=== PATIENT | female | born 1955 | race African-American/Black ===

== ENCOUNTER 2025-05-19 16:57 | Inpatient (IN) | payer MEDICARE, MEDICAID ==
[~2025-05-19] VITALS: Ht 170.2 cm; Wt 96.6 kg
[2025-05-19] VITALS (23 sets, daily range): BP systolic 127–175; BP diastolic 50–135; PULSE 59–66; RESP 10–24; TEMP 36.8–37.252; O2SAT 95–100
[2025-05-19] MEDS: ALBUTEROL (0.083%) 2.5MG/3ML NEB HHN SCH (17:30)
[2025-05-19] MEDS: IPRATROPIUM BROMIDE (0.02%) 0.5MG/2.5ML NEB HHN SCH (17:31)
[2025-05-19] MEDS: NALOXONE HCL 1MG/ML 2ML VIAL IV ONE (17:32)
[2025-05-19] MEDS: METHYLPREDNISOLONE SOD SUCC 125MG/2ML (ACT-O-VIAL) IV ONE (17:39)
[2025-05-19] MEDS: SODIUM CHLORIDE 0.9% 1,000 ML IV ONE (17:40)
[2025-05-19] MEDS: MAGNESIUM 2 G PREMIX 50 ML IV ONE (17:46)
[2025-05-19 18:09] LABS: BG BASE EXCESS 2.3 mmol/L (-2.0-3.0); BG CARBOXYHEMOGLOBIN 1.1 % (0.5-1.5); BG DEOXYHEMOGLOBIN 0.0 % (0.0-5.0); BG FRACTION INSPIRED OXYGEN 100; BG HCO3 ACT 30.5 mmol/L (21.0-28.0); BG METHEMOGLOBIN 0.3 % (0.5-1.5); BG OXYGEN SATURATION 100.0 % (94.0-98.0); BG OXYHEMOGLOBIN 98.6 % (94.0-98.0); BG PCO2 64.7 mmHg (32.0-45.0); BG PH 7.291 (7.350-7.450); BG PO2 440.8 mmHg (83.0-108.0); BG SAMPLE SITE RIGHT RADIAL; BG TOTAL HEMOGLOBIN 13.2 g/dL (12.0-16.0); BG VENT MODE MASK - NRB
[2025-05-19] MEDS ORDERED: FENTANYL 2500MCG/250ML PMX 250 ML IV SCH ×2 (18:15→18:45)
[2025-05-19 18:25] LABS: BASOPHILS % 0.9 % (0.0-2.0); EOSINOPHILS % 6.9 % (0.0-5.0); HEMATOCRIT. 39.7 % (36.0-48.0); HEMOGLOBIN. 12.5 g/dL (12.0-16.0); LYMPHOCYTES % 24.8 % (20.0-50.0); MEAN PLATELET VOLUME 7.5 fl (7.4-10.4); MONOCYTES % 8.9 % (2.0-8.0); NEUTROPHILS % 58.5 % (40.0-76.0); PLATELET 295 x1000/uL (130-400); RED BLOOD CELL COUNT 4.41 mill/uL (4.2-5.4); RED CELL DISTRIBUTION WIDTH 15.0 % (11.6-14.6)
[2025-05-19] MEDS: NOREPINEPHRINE 8MG/250ML PMX 250 ML IV SCH (18:32)
[2025-05-19 18:39] LABS: INR 1.0
[2025-05-19 18:40] LABS: CREATININE 0.8 mg/dL (0.6-1.0); UREA NITROGEN BLOOD 13 mg/dL (9-23)
[2025-05-19 18:42] LABS: TROPONIN I HIGH SENSITIVITY 32 ng/L (3.0-34)
[2025-05-19] MEDS: HALOPERIDOL LACTATE 5MG/ML VIAL IM ONE (19:08)
[2025-05-19] MEDS: ETOMIDATE 2MG/ML 10ML VIAL IV ONE (19:10)
[2025-05-19] MEDS: ROCURONIUM BROMIDE 10MG/ML VIAL 5ML IV ONE (19:10)
[2025-05-19] MEDS: FENTANYL 2500MCG/250ML PMX 250 ML IV PRN (19:13)
[2025-05-19] MEDS ORDERED: MORPHINE SULFATE 2 MG/ML INJ (NOT FOR IM USE) IV PRN (19:45)
[2025-05-19] MEDS ORDERED: ONDANSETRON HCL 4MG/2ML INJ IV PRN (19:45)
[2025-05-19] MEDS ORDERED: MAGNESIUM/ALUMINUM HYDROXIDE/SIMETHICONE 30ML UDC PO PRN (19:45)
[2025-05-19] MEDS ORDERED: ACETAMINOPHEN 325MG TABLET PO PRN (19:45)
[2025-05-19] MEDS ORDERED: ZOLPIDEM TARTRATE 5MG TABLET PO PRN (19:45)
[2025-05-19] MEDS ORDERED: HYDROCODONE/ACETAMINOPHEN 5/325MG TABLET PO PRN (19:45)
[2025-05-19] MEDS ORDERED: NALOXONE HCL 0.4MG/ML VIAL IV PRN (20:00)
[2025-05-19 20:23] LABS: TROPONIN I HIGH SENSITIVITY 27 ng/L (3.0-34)
[2025-05-19] MEDS: CEFEPIME 2GM PREMIX 100ML IV SCH (21:00)
[2025-05-19] MEDS: ENOXAPARIN 30MG/0.3ML SYR SUBCUT SCH (21:36)
[2025-05-19] MEDS: SODIUM CHLORIDE 0.9% 1,000 ML IV SCH (21:36)
[2025-05-19] MEDS ORDERED: PIPERACILLIN/TAZO 3.375G/50ML 50 ML IV SCH (22:00)
[2025-05-19] MEDS: AZITHROMYCIN 500MG/250ML 250 ML IV SCH (22:22)
[2025-05-19] MEDS: IPRATROPIUM/ALBUTEROL 0.5-3(2.5)MG/3ML NEB HHN SCH (22:57)
[2025-05-20] VITALS (101 sets, daily range): BP systolic 80–173; BP diastolic 45–119; PULSE 58–68; RESP 11–22; TEMP 36.9–37.2; O2SAT 95–100
[2025-05-20 06:13] LABS: TROPONIN I HIGH SENSITIVITY 19 ng/L (3.0-34)
[2025-05-20 06:43] LABS: CREATININE 0.6 mg/dL (0.6-1.0); UREA NITROGEN BLOOD 11 mg/dL (9-23)
[2025-05-20 09:13] LABS: CLARITY URINE CLEAR (CLEAR); COLOR URINE YELLOW (YELLOW); GLUCOSE URINE 3+ (NEGATIVE); KETONES URINE 1+ (NEGATIVE); LEUKOCYTE ESTERASE URINE NEGATIVE (NEGATIVE); NITRITE URINE NEGATIVE (NEGATIVE); OCCULT BLOOD URINE 2+ (NEGATIVE); PH URINE 5.0 (4.5-8.0); PROTEIN URINE TRACE (NEGATIVE); SPECIFIC GRAVITY URINE 1.032 (1.005-1.030); UROBILINOGEN URINE 0.2 E.U./dL (0.2-1.0)
[2025-05-20 09:28] LABS: RBC URINE 15-25 /hpf (0-2); SQUAMOUS EPITHELIAL CELL URINE FEW /lpf (RARE/1+)
[2025-05-20 09:32] LABS: BACTERIA URINE TRACE
[2025-05-20 09:44] LABS: *AMPHETAMINES SCREEN URINE NEGATIVE (NEGATIVE); *BARBITURATES SCREEN URINE NEGATIVE (NEGATIVE); *BENZODIAZEPINES SCREEN URINE NEGATIVE (NEGATIVE); *COCAINE SCREEN URINE NEGATIVE (NEGATIVE)
[2025-05-20 09:45] LABS: CANNABINOID URINE SCREEN NEGATIVE (NEGATIVE); ECSTASY MDMA SCREEN URINE NEGATIVE (NEGATIVE); METHADONE URINE SCREEN NEGATIVE (NEGATIVE); OPIATES URINE SCREEN NEGATIVE (NEGATIVE); PHENCYCLIDINE URINE SCREEN NEGATIVE (NEGATIVE)
[2025-05-20] MEDS: PANTOPRAZOLE SODIUM 40 MG/VIAL IV SCH (10:20)
[2025-05-20 10:29] LABS: BASOPHILS % 0.4 % (0.0-2.0); EOSINOPHILS % 0.0 % (0.0-5.0); HEMATOCRIT. 42.6 % (36.0-48.0); HEMOGLOBIN. 13.0 g/dL (12.0-16.0); LYMPHOCYTES % 12.0 % (20.0-50.0); MEAN PLATELET VOLUME 7.3 fl (7.4-10.4); MONOCYTES % 8.5 % (2.0-8.0); NEUTROPHILS % 79.1 % (40.0-76.0); PLATELET 281 x1000/uL (130-400); RED BLOOD CELL COUNT 4.64 mill/uL (4.2-5.4); RED CELL DISTRIBUTION WIDTH 15.0 % (11.6-14.6)
[2025-05-20] MEDS: METHYLPREDNISOLONE SOD SUCC 40MG/ML (ACT-O-VIAL) IV SCH (10:30)
[2025-05-20] MEDS ORDERED: METHIMAZOLE 5MG TABLET PO SCH (10:30)
[2025-05-20 10:50] LABS: TROPONIN I HIGH SENSITIVITY 29 ng/L (3.0-34)
[2025-05-20 10:56] LABS: BG BASE EXCESS -0.6 mmol/L (-2.0-3.0); BG CARBOXYHEMOGLOBIN 0.8 % (0.5-1.5); BG DEOXYHEMOGLOBIN 2.2 % (0.0-5.0); BG FRACTION INSPIRED OXYGEN 40; BG HCO3 ACT 26.3 mmol/L (21.0-28.0); BG METHEMOGLOBIN 0.3 % (0.5-1.5); BG OXYGEN SATURATION 97.8 % (94.0-98.0); BG OXYHEMOGLOBIN 96.7 % (94.0-98.0); BG PCO2 52.6 mmHg (32.0-45.0); BG PEEP (cmH2O) 5.0 cmH2O; BG PH 7.317 (7.350-7.450); BG PO2 97.9 mmHg (83.0-108.0); BG SAMPLE SITE RIGHT RADIAL; BG TIDAL VOLUME(mL) 400.0 mL; BG TOTAL HEMOGLOBIN 13.6 g/dL (12.0-16.0); BG VENT MODE VENT - AC; BG VENT RATE 12.0 set
[2025-05-20] MEDS: DEXT 5%/0.45% NACL 1000ML 1,000 ML IV SCH (12:58)
[2025-05-20] MEDS ORDERED: DEXTROSE 50% WATER 50ML SYRINGE IV PRN (17:45)
[2025-05-20 19:47] LABS: T4 FREE 1.0 ng/dL (0.89-1.76)
[2025-05-20 19:54] LABS: VITAMIN B12 SERUM 1101 pg/mL (211-911)
[2025-05-20] MEDS: INSULIN LISPRO 100 UNITS/ML SUBCUT SCH (20:56)
[2025-05-20] MEDS: BLOOD SUGAR DIAGNOSTIC STRIP TEST SCH (20:56)
[2025-05-20] MEDS: AZITHROMYCIN 500MG/250ML 250 ML IV SCH (21:14)
[2025-05-21] VITALS (109 sets, daily range): BP systolic 119–189; BP diastolic 57–149; PULSE 59–69; RESP 10–23; TEMP 36.8–37; O2SAT 82–100
[2025-05-21 06:02] LABS: BASOPHILS % 0.3 % (0.0-2.0); EOSINOPHILS % 0.6 % (0.0-5.0); HEMATOCRIT. 38.5 % (36.0-48.0); HEMOGLOBIN. 12.3 g/dL (12.0-16.0); LYMPHOCYTES % 11.1 % (20.0-50.0); MEAN PLATELET VOLUME 7.8 fl (7.4-10.4); MONOCYTES % 9.7 % (2.0-8.0); NEUTROPHILS % 78.3 % (40.0-76.0); PLATELET 296 x1000/uL (130-400); RED BLOOD CELL COUNT 4.26 mill/uL (4.2-5.4); RED CELL DISTRIBUTION WIDTH 15.0 % (11.6-14.6)
[2025-05-21 06:09] LABS: CREATININE 0.8 mg/dL (0.6-1.0); UREA NITROGEN BLOOD 17 mg/dL (9-23)
[2025-05-21] MEDS: CLONIDINE 0.1MG TABLET PO PRN (06:42)
[2025-05-21] MEDS ORDERED: LIDOCAINE HCL 1% 10 MG/ML 10ML VIAL ONE (07:25)
[2025-05-21] MEDS: LOSARTAN 25 MG TABLET NG SCH (09:19)
[2025-05-21 10:40] LABS: BG BASE EXCESS 1.8 mmol/L (-2.0-3.0); BG CARBOXYHEMOGLOBIN 1.3 % (0.5-1.5); BG DEOXYHEMOGLOBIN 2.1 % (0.0-5.0); BG FRACTION INSPIRED OXYGEN 40; BG HCO3 ACT 27.9 mmol/L (21.0-28.0); BG METHEMOGLOBIN 0.1 % (0.5-1.5); BG OXYGEN SATURATION 97.9 % (94.0-98.0); BG OXYHEMOGLOBIN 96.5 % (94.0-98.0); BG PCO2 49.3 mmHg (32.0-45.0); BG PEEP (cmH2O) 5.0 cmH2O; BG PH 7.370 (7.350-7.450); BG PO2 98.7 mmHg (83.0-108.0); BG SAMPLE SITE RIGHT RADIAL; BG TIDAL VOLUME(mL) 400.0 mL; BG TOTAL HEMOGLOBIN 13.4 g/dL (12.0-16.0); BG VENT MODE VENT - AC; BG VENT RATE 12.0 set
[2025-05-21] MEDS: AMLODIPINE 5MG TABLET NG SCH (11:21)
[2025-05-21] MEDS: METHIMAZOLE 5MG TABLET PEG SCH (14:34)
[2025-05-21] MEDS ORDERED: HYDRALAZINE 20MG/ML VIAL IV PRN (15:00)
[2025-05-21] MEDS: DOXYCYCLINE 100MG/100ML 100 ML IV SCH (20:47)
[2025-05-22] VITALS (51 sets, daily range): BP systolic 121–173; BP diastolic 50–140; PULSE 59–90; RESP 10–23; TEMP 36.2–36.9; O2SAT 95–100
[2025-05-22 00:02] LABS: BG BASE EXCESS 0.8 mmol/L (-2.0-3.0); BG CARBOXYHEMOGLOBIN 0.7 % (0.5-1.5); BG DEOXYHEMOGLOBIN 4.1 % (0.0-5.0); BG FLOW(L/min) 5.00 L/min; BG FRACTION INSPIRED OXYGEN 40; BG HCO3 ACT 26.3 mmol/L (21.0-28.0); BG METHEMOGLOBIN 0.3 % (0.5-1.5); BG OXYGEN SATURATION 95.9 % (94.0-98.0); BG OXYHEMOGLOBIN 94.9 % (94.0-98.0); BG PCO2 45.5 mmHg (32.0-45.0); BG PH 7.380 (7.350-7.450); BG PO2 78.3 mmHg (83.0-108.0); BG SAMPLE SITE LEFT RADIAL; BG TOTAL HEMOGLOBIN 13.5 g/dL (12.0-16.0); BG VENT MODE NASAL CANNULA
[2025-05-22] MEDS: IPRATROPIUM/ALBUTEROL 0.5-3(2.5)MG/3ML NEB HHN SCH (00:43)
[2025-05-22 10:38] LABS: BG BASE EXCESS 4.2 mmol/L (-2.0-3.0); BG CARBOXYHEMOGLOBIN 0.9 % (0.5-1.5); BG DEOXYHEMOGLOBIN 7.8 % (0.0-5.0); BG FLOW(L/min) 2.00 L/min; BG FRACTION INSPIRED OXYGEN 28; BG HCO3 ACT 28.0 mmol/L (21.0-28.0); BG METHEMOGLOBIN 0.1 % (0.5-1.5); BG OXYGEN SATURATION 92.1 % (94.0-98.0); BG OXYHEMOGLOBIN 91.2 % (94.0-98.0); BG PCO2 39.3 mmHg (32.0-45.0); BG PH 7.471 (7.350-7.450); BG PO2 58.0 mmHg (83.0-108.0); BG SAMPLE SITE RIGHT RADIAL; BG TOTAL HEMOGLOBIN 14.5 g/dL (12.0-16.0); BG VENT MODE NASAL CANNULA
[2025-05-22 20:56] LABS: BASOPHILS % 0.5 % (0.0-2.0); EOSINOPHILS % 0.0 % (0.0-5.0); HEMATOCRIT. 40.8 % (36.0-48.0); HEMOGLOBIN. 13.1 g/dL (12.0-16.0); LYMPHOCYTES % 7.9 % (20.0-50.0); MEAN PLATELET VOLUME 8.0 fl (7.4-10.4); MONOCYTES % 9.9 % (2.0-8.0); NEUTROPHILS % 81.7 % (40.0-76.0); PLATELET 252 x1000/uL (130-400); RED BLOOD CELL COUNT 4.62 mill/uL (4.2-5.4); RED CELL DISTRIBUTION WIDTH 14.6 % (11.6-14.6)
[2025-05-22 21:10] LABS: CREATININE 0.6 mg/dL (0.6-1.0)
[2025-05-22 21:11] LABS: UREA NITROGEN BLOOD 11 mg/dL (9-23)
[2025-05-23] VITALS (8 sets, daily range): BP systolic 125–158; BP diastolic 51–85; PULSE 59–105; RESP 15–21; TEMP 36.2–36.6; O2SAT 96–99
[2025-05-23] MEDS: AMLODIPINE 10MG TABLET NG SCH (11:43)
[2025-05-23] MEDS: METHYLPREDNISOLONE SOD SUCC 40MG/ML (ACT-O-VIAL) IV SCH (11:44)
[2025-05-23] MEDS ORDERED: IPRA3AMP9 HHN (14:38)
[2025-05-23] MEDS ORDERED: AMLO10TA80 NG (14:38)
[2025-05-23] MEDS ORDERED: LOSA25TA26 NG (14:38)
[2025-05-23] MEDS ORDERED: METH4TAB95 MT (14:38)
== END 2025-05-23 16:15 | DRG 208 ==
LOC: ER 16:57 → EDBEDREQSVC 19:15 → EDBEDREQTM 19:15 → EDBEDREQ 19:15 → EDBEDREQTM 19:34 → ENRESERV 19:44 → MICUNO 20:43 → 6WST 05-22 12:59
PROVIDERS: ADMIT Internal Medicine; ATTEND Internal Medicine
PROC: 0BH17EZ Insertion of Endotracheal Airway into Trachea, Via Natural or Artificial Opening (ICD-10-PCS; principal; 2025-05-19)
PROC: 5A1945Z Respiratory Ventilation, 24-96 Consecutive Hours (ICD-10-PCS; 2025-05-19)
DX: J18.9 Pneumonia, unspecified organism (principal); J96.02 Acute respiratory failure with hypercapnia; G92.8 Other toxic encephalopathy; I50.31 Acute diastolic (congestive) heart failure; J96.01 Acute respiratory failure with hypoxia; L89.152 Pressure ulcer of sacral region, stage 2; L89.326 Pressure-induced deep tissue damage of left buttock; J44.0 Chronic obstructive pulmonary disease with (acute) lower respiratory infection; I13.0 Hypertensive heart and chronic kidney disease with heart failure and stage 1 through stage 4 chronic kidney disease, or unspecified chronic kidney disease; N18.9 Chronic kidney disease, unspecified; E11.22 Type 2 diabetes mellitus with diabetic chronic kidney disease; E05.90 Thyrotoxicosis, unspecified without thyrotoxic crisis or storm; F32.9 Major depressive disorder, single episode, unspecified; E66.9 Obesity, unspecified; M06.9 Rheumatoid arthritis, unspecified; E87.0 Hyperosmolality and hypernatremia; J44.1 Chronic obstructive pulmonary disease with (acute) exacerbation; D72.10 Eosinophilia, unspecified; E78.5 Hyperlipidemia, unspecified; E11.40 Type 2 diabetes mellitus with diabetic neuropathy, unspecified; F41.9 Anxiety disorder, unspecified; M48.00 Spinal stenosis, site unspecified; M54.9 Dorsalgia, unspecified; L89.316 Pressure-induced deep tissue damage of right buttock; H54.8 Legal blindness, as defined in USA; Z68.33 Body mass index [BMI] 33.0-33.9, adult; Z99.81 Dependence on supplemental oxygen; Z88.0 Allergy status to penicillin; Z95.0 Presence of cardiac pacemaker
CPT/HCPCS: 31500; 31720; 36415; 36573; 36600; 71045; 80048; 80305; 81003; 82330; 82375; 82550; 82607; 82805; 82962; 83036; 83605; 83880; 84145; 84439; 84443; 84480; 84484; 85025; 93005; 93306; 93970; 94002; 94003; 94070; 94640; 94664; 99291; 99292; A4606; A4615; C1725; J0456; J0692; J1630; J1650; J1815; J2003; J2312; J2470; J2919; J3010; J3475; J3490; J7030